=== PATIENT | female | born 1955 | race Caucasian/White ===

== ENCOUNTER 2016-10-22 10:28 | Emergency (ER) | payer BC ==
[2016-10-22 10:40] VITALS: RESP 18; TEMP 97.6; O2SAT 100; BMI 29.9
[2016-10-22] MEDS ORDERED: Sodium Chloride 0.9% 1,000 ML IV ONE (10:50)
[2016-10-22 10:59] LABS: RBC URINE 140 /hpf (0-3); URINE BILIRUBIN NEGATIVE (NEGATIVE); URINE BLOOD 3+ (NEGATIVE); URINE COLOR Yellow (YELLOW); URINE GLUCOSE (UA) NORMAL (Normal); URINE HYALINE CAST 0-2 /lpf (0-2); URINE KETONE NEGATIVE (NEGATIVE); URINE LEUKOCYTE ESTERASE 1+ Leu/uL (Negative); URINE PROTEIN 1+ mg/dL (NEGATIVE); URINE UROBILINOGEN NORMAL mg/dL (0.2-1.0); WBC URINE 3 /hpf (0-5)
[2016-10-22] MEDS ORDERED: Sodium Chloride 0.9% 1,000 ML ONE (11:04)
--- NOTE | 2016-10-22 11:07 | C.PDOC ---
History Of Present Illness Patient is a 60 year old female, with no significant PMHx, presents to ED for evaluation of one day history of left lower abdominal pain, and lower back pain for the last 2-3 days. Denies fever, chills, nausea, vomiting, diarrhea, or urinary symptoms. Time Seen by Provider: 10/22/16 10:35 Chief Complaint (Nursing): Abdominal Pain History Per: Patient History/Exam Limitations: no limitations Onset/Duration Of Symptoms: Days (3) Current Symptoms Are (Timing): Still Present Severity: Mild Location Of Pain/Discomfort: Suprapubic Radiation Of Pain To:: Back Quality Of Discomfort: "Pain" Associated Symptoms: Back Pain. denies: Loss Of Appetite, Chest Pain, Constipation, Urinary Symptoms Exacerbating Factors: None Alleviating Factors: None Recent travel outside of the [place]: No Additional History Per: Patient Abnormal Vaginal Bleeding: No Past Medical History Reviewed: Historical Data, Nursing Documentation, Vital Signs Vital Signs: Last Vital Signs Temp 97.6 F 10/22/16 10:30 Pulse 65 10/22/16 12:18 Resp 18 10/22/16 12:18 BP 148/69 10/22/16 12:18 Pulse Ox 100 10/22/16 14:58 - Medical History PMH: Anxiety, Depression Surgical History: Endoscopy Other Surgeries: Bladder prolapse surgery, hysterectomy Family History: States: Unknown Family Hx - Social History Hx Tobacco Use: No Hx Alcohol Use: No Hx Substance Use: No - Immunization History Hx Tetanus Toxoid Vaccination: No Hx Influenza Vaccination: No Hx Pneumococcal Vaccination: No Review Of Systems Except As Marked, All Systems Reviewed And Found Negative. Constitutional: Negative for: Fever, Chills Cardiovascular: Negative for: Chest Pain, Palpitations Respiratory: Negative for: Shortness of Breath Gastrointestinal: Positive for: Abdominal Pain (lower abdominal pain). Negative for: Nausea, Vomiting, Diarrhea, Constipation Genitourinary: Negative for: Dysuria, Frequency, Hematuria Musculoskeletal: Positive for: Back Pain (lower back pain) Neurological: Negative for: Weakness, Numbness Physical Exam - Physical Exam Appears: Non-toxic, No Acute Distress Skin: Normal Color, Warm, Dry Head: Atraumatic, Normacephalic Oral Mucosa: Moist Neck: Normal ROM, Supple Chest: Symmetrical Cardiovascular: Rhythm Regular, No Murmur Respiratory: Normal Breath Sounds, No Rales, No Rhonchi, No Wheezing Gastrointestinal/Abdominal: Soft, Tenderness (left lower and suprapubic tenderness), No Guarding, No Rebound Back: Normal Inspection, No CVA Tenderness, No Vertebral Tenderness Extremity: Bilateral: Atraumatic, Normal ROM Neurological/Psych: Oriented x3, Normal Speech, Normal Cognition ED Course And Treatment - Laboratory Results Result Diagrams: 10/22/16 10:56 10/22/16 10:56 Lab Interpretation: Normal O2 Sat by Pulse Oximetry: 100 (on RA) Pulse Ox Interpretation: Normal - CT Scan/US No standard instances Other Rad Studies (CT/US): Read By Radiologist, Radiology Report Reviewed CT/US Interpretation: FINDINGS: There is limited evaluation of the solid organs without the administration of IV contrast. LOWER THORAX: No visible consolidation, pleural effusion, or pneumothorax. 3 mm subpleural right lower lobe nodule (series 5, image 16). LIVER: Unremarkable unenhanced appearance. GALLBLADDER AND BILE DUCTS: Unremarkable unenhanced appearance. PANCREAS: Unremarkable unenhanced appearance. SPLEEN: 11 mm probable splenule. Otherwise unremarkable unenhanced appearance. ADRENALS: Unremarkable unenhanced appearance. KIDNEYS AND URETERS: 6 mm distal left ureteral calculus (series 3, image 135) with mild proximal hydroureteronephrosis. No right-sided hydronephrosis or obstructing calculus. 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 BLADDER : The urinary bladder appears unremarkable. REPRODUCTIVE: Uterus is absent, presumably due to hysterectomy. APPENDIX: The appendix appears within normal limits of caliber. No secondary signs of acute appendicitis. BOWEL: The stomach is nondistended. Lack of oral contrast limits evaluation for bowel pathology. The bowel loops appear within normal limits of caliber without evidence of intestinal obstruction. PERITONEUM: No significant free fluid. No definite free air. LYMPH NODES: No bulky lymphadenopathy identified. VASCULATURE: No aortic aneurysm. BONES: Degenerative changes. OTHER FINDINGS : 5 mm fat containing umbilical hernia. IMPRESSION: 3 mm subpleural right lower lobe pulmonary nodule. In the absence of risk factors for lung cancer, no specific imaging follow-up is required. If the patient is a smoker or has other risk factors, follow-up CT at 12 months is recommended to document stability. 6 mm distal left ureteral calculus with mild proximal hydroureteronephrosis. 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 Progress Note: Blood work, UA, Abd & Pelvis CT ordered and reviewed. Pt was given IV fluids, and Toradol. On re-evaluation, patient reports feeling better, with improvement of pain. On re-evaluation abdomen soft non-tender. Patient provided with copy of labs and CT. Patient advised to follow up with PMD for incidental findings Reassessment Condition: Improved Disposition Counseled Patient/Family Regarding: Studies Performed, Diagnosis, Need For Followup, Rx Given - Disposition Referrals: Davi Yoder MD [Staff Provider] - Disposition: HOME/ ROUTINE Disposition Time: 12:15 Condition: IMPROVED Additional Instructions: Follow up with urology for further evaluation Prescriptions: traMADol [Ultram] 50 mg PO TID PRN #12 tab PRN Reason: Pain, Moderate (4-7) Instructions: Renal Colic (ED) Forms: [facility] (Dominican) - POA Present On Arrival: None - Clinical Impression Clinical Impression: Abdominal pain, Renal colic - PA / TANKER DRIVER / Resident Statement MD/DO has reviewed & agrees with the documentation as recorded. - Scribe Statement The provider has reviewed the documentation as recorded by the Jodiibwalter Castellon All medical record entries made by the Sotero were at my direction and personally dictated by me. I have reviewed the chart and agree that the record accurately reflects my personal performance of the history, physical exam, medical decision making, and the department course for this patient. I have also personally directed, reviewed, and agree with the discharge instructions and disposition.
[2016-10-22 11:12] LABS: BASO % 0.3 % (0.0-2.0); EOS % 0.5 % (0.0-4.0); HEMATOCRIT 39.9 % (34.0-47.0); LYMPH # 1.2 K/uL (1.0-4.3); LYMPH % 14.6 % (20.0-40.0); MEAN CELL VOLUME 83.3 fL (81.0-99.0); MEAN CORPUSCULAR HEMOGLOBIN 28.7 pg (27.0-31.0); MEAN CORPUSCULAR HGB CONC 34.4 g/dL (33.0-37.0); MEAN PLATELET VOLUME 8.8 fL (7.2-11.7); MONO # 0.4 K/uL (0.0-0.8); MONO % 4.7 % (0.0-10.0); RED CELL DISTRIBUTION WIDTH 14.2 % (11.5-14.5); WHITE BLOOD COUNT 8.1 K/uL (4.8-10.8)
[2016-10-22 11:24] LABS: ALKALINE PHOSPHATASE 127 U/L (38-126); ALT/SGPT 24 U/L (9-52); AST/SGOT 18 U/L (14-36); BILIRUBIN,TOTAL 0.8 mg/dL (0.2-1.3); BLOOD UREA NITROGEN 15 mg/dL (7-17); CALCIUM 9.3 mg/dl (8.6-10.4); CARBON DIOXIDE 22 mmol/L (22-30); CHLORIDE 102 mmol/L (98-107); GFR AFRICAN-AMERICAN > 60; GLUCOSE,RANDOM 113 mg/dL (65-105); POTASSIUM 3.5 mmol/L (3.6-5.2); SODIUM 139 mmol/L (132-148); TOTAL PROTEIN 7.2 g/dL (6.3-8.3)
--- NOTE | 2016-10-22 11:41 | CT ---
PROCEDURE: CT Abdomen and Pelvis without Oral or IV contrast. HISTORY: Pain COMPARISON: None available. TECHNIQUE: Contiguous axial images of the abdomen and pelvis. No oral or IV contrast administered. Coronal and Sagittal reformats generated. Radiation dose: Total exam DLP = 936.68 mGy-cm. This CT exam was performed using one or more of the following dose reduction techniques: Automated exposure control, adjustment of the mA and/or kV according to patient size, and/or use of iterative reconstruction technique. FINDINGS: There is limited evaluation of the solid organs without the administration of IV contrast. LOWER THORAX: No visible consolidation, pleural effusion, or pneumothorax. 3 mm subpleural right lower lobe nodule (series 5, image 16). LIVER: Unremarkable unenhanced appearance. GALLBLADDER AND BILE DUCTS: Unremarkable unenhanced appearance. PANCREAS: Unremarkable unenhanced appearance. SPLEEN: 11 mm probable splenule. Otherwise unremarkable unenhanced appearance. ADRENALS: Unremarkable unenhanced appearance. KIDNEYS AND URETERS: 6 mm distal left ureteral calculus (series 3, image 135) with mild proximal hydroureteronephrosis. No right-sided hydronephrosis or obstructing calculus. 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 BLADDER: The urinary bladder appears unremarkable. REPRODUCTIVE: Uterus is absent, presumably due to hysterectomy. APPENDIX: The appendix appears within normal limits of caliber. No secondary signs of acute appendicitis. BOWEL: The stomach is nondistended. Lack of oral contrast limits evaluation for bowel pathology. The bowel loops appear within normal limits of caliber without evidence of intestinal obstruction. PERITONEUM: No significant free fluid. No definite free air. LYMPH NODES: No bulky lymphadenopathy identified. VASCULATURE: No aortic aneurysm. BONES: Degenerative changes. OTHER FINDINGS: 5 mm fat containing umbilical hernia. IMPRESSION: 3 mm subpleural right lower lobe pulmonary nodule. In the absence of risk factors for lung cancer, no specific imaging follow-up is required. If the patient is a smoker or has other risk factors, follow-up CT at 12 months is recommended to document stability. 6 mm distal left ureteral calculus with mild proximal hydroureteronephrosis. 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 Additional findings as above.
[2016-10-22 12:20] VITALS: BP 148/69; PULSE 65
== END 2016-10-22 12:22 | disposition home or self-care (01) ==
LOC: C.ER 10:28
DX: R10.32 Left lower quadrant pain (principal); N23 Unspecified renal colic
CPT/HCPCS: 74176; 80053; 81001; 83690; 85025; 87086; 96361; 96374; 99285; J1885; J7040

== ENCOUNTER 2016-10-25 09:21 | Day surgery (SDC) | payer BC ==
[2016-10-25 09:21] VITALS: BMI 31.6
--- NOTE | 2016-10-25 09:34 | C.PDOC ---
History Of Present Illness 60F c/o left flank pain since this am. here w abd pain wed and dx kidney stone. pain worse now, tramadol not working. +nausea. no fever. last po intake cranberry juice 3am. Time Seen by Provider: 10/25/16 09:34 Chief Complaint (Nursing): Back Pain History Per: Patient History/Exam Limitations: no limitations Onset/Duration Of Symptoms: Sudden Onset Past Medical History Reviewed: Historical Data, Nursing Documentation, Vital Signs Vital Signs: Last Vital Signs Temp 97.7 F 10/25/16 09:27 Pulse 65 10/25/16 09:27 Resp 20 10/25/16 09:27 BP 177/81 H 10/25/16 09:27 Pulse Ox 100 10/25/16 09:53 - Medical History PMH: Anxiety, Depression Surgical History: Endoscopy Family History: States: No Known Family Hx Other Family History: nc - Social History Hx Tobacco Use: No Hx Alcohol Use: No Hx Substance Use: No - Immunization History Hx Tetanus Toxoid Vaccination: No Hx Influenza Vaccination: No Hx Pneumococcal Vaccination: No Review Of Systems Except As Marked, All Systems Reviewed And Found Negative. Constitutional: Negative for: Fever, Chills Cardiovascular: Negative for: Chest Pain Respiratory: Negative for: Shortness of Breath Gastrointestinal: Positive for: Nausea, Abdominal Pain. Negative for: Vomiting Genitourinary: Negative for: Dysuria Physical Exam - Physical Exam Appears: Non-toxic Skin: Warm, Dry, No Diaphoretic Head: Atraumatic Nose: No Epistaxis Oral Mucosa: Moist Neck: Normal ROM Cardiovascular: Rhythm Regular Respiratory: No Decreased Breath Sounds, No Accessory Muscle Use Gastrointestinal/Abdominal: Soft, No Tenderness, No Distention, No Guarding, No Rebound Back: CVA Tenderness (left) Extremity: No Swelling Neurological/Psych: Oriented x3 ED Course And Treatment O2 Sat by Pulse Oximetry: 100 (RA) Pulse Ox Interpretation: Normal Medical Decision Making Medical Decision Makin disc w Dr Yoder will take to OR today. Disposition - Disposition Disposition: HOSPITALIZED Disposition Time: 09:50 Condition: STABLE Forms: [employer] ([place]) - Clinical Impression Clinical Impression: Renal colic
[2016-10-25] MEDS ORDERED: Sodium Chloride 0.9% 1,000 ML IV ONE ×2 (09:40→13:00)
[2016-10-25] MEDS ORDERED: Morphine 4 MG/ML VIAL ONE ×2 (09:48→11:15)
[2016-10-25] MEDS ORDERED: Sodium Chloride 0.9% 1,000 ML ONE ×2 (09:48→11:15)
[2016-10-25] MEDS ORDERED: Sodium Chloride 0.9% 1,000 ML IV SCH (10:00)
[2016-10-25 10:40] LABS: BASO % 0.3 % (0.0-2.0); EOS % 0.3 % (0.0-4.0); LYMPH # 0.9 K/uL (1.0-4.3); LYMPH % 10.6 % (20.0-40.0); MEAN CELL VOLUME 83.8 fL (81.0-99.0); MEAN CORPUSCULAR HEMOGLOBIN 28.4 pg (27.0-31.0); MEAN CORPUSCULAR HGB CONC 33.9 g/dL (33.0-37.0); MEAN PLATELET VOLUME 9.4 fL (7.2-11.7); MONO # 0.5 K/uL (0.0-0.8); MONO % 5.8 % (0.0-10.0); RED CELL DISTRIBUTION WIDTH 13.9 % (11.5-14.5); WHITE BLOOD COUNT 8.1 K/uL (4.8-10.8)
[2016-10-25 10:43] LABS: CHLORIDE 100 mmol/L (98-107); POTASSIUM 4.7 mmol/L (3.6-5.2); SODIUM 136 mmol/L (132-148)
[2016-10-25 10:46] LABS: BLOOD UREA NITROGEN 19 mg/dL (7-17); CARBON DIOXIDE 22 mmol/L (22-30); GFR AFRICAN-AMERICAN > 60
[2016-10-25 10:47] LABS: CALCIUM 9.1 mg/dl (8.6-10.4); GLUCOSE,RANDOM 93 mg/dL (65-105)
[2016-10-25 11:12] LABS: URINE BILIRUBIN NEGATIVE (NEGATIVE); URINE BLOOD 2+ (NEGATIVE); URINE COLOR Straw (YELLOW); URINE GLUCOSE (UA) NORMAL (Normal); URINE KETONE NEGATIVE (NEGATIVE); URINE LEUKOCYTE ESTERASE NEG Leu/uL (Negative); URINE PROTEIN NEGATIVE (NEGATIVE); URINE UROBILINOGEN NORMAL mg/dL (0.2-1.0); WBC URINE 2 /hpf (0-5)
[2016-10-25 11:33] LABS: RBC URINE 3 /hpf (0-3)
[2016-10-25] MEDS ORDERED: Propofol 10 mg/ml Inj (20 ML) ONE (12:35)
[2016-10-25] MEDS ORDERED: Midazolam 2 MG/2 ML VIAL ONE (12:35)
[2016-10-25] MEDS ORDERED: Lidocaine Hydrochloride 5 ML INJ ONE (12:38)
[2016-10-25] MEDS ORDERED: Lidocaine 2% Jelly (Uro-Jet) ONE (12:41)
[2016-10-25] MEDS ORDERED: Ciprofloxacin 400mg/200ml D5W 400 MG/200 ML BAG IVPB ONE (12:41)
[2016-10-25] MEDS ORDERED: Phenylephrine 10 mg/ml Inj ONE (12:43)
[2016-10-25] MEDS ORDERED: Iohexol 240 (50 ml) ONE (13:13)
[2016-10-25] MEDS ORDERED: ePHEDrine 50 mg/ml Inj ONE (13:19)
[2016-10-25] MEDS ORDERED: HYDROmorphone 0.5 mg/0.5 ml ISec IVP PRN (13:44)
[2016-10-25 14:26] VITALS: TEMP 97
[2016-10-25 14:50] VITALS: BP 133/68; PULSE 77; RESP 13; O2SAT 7
--- NOTE | 2016-10-25 16:54 | RAD ---
PROCEDURE: Intraoperative fluoroscopy HISTORY: LT. DISTAL URETER CALCULI COMPARISON: Not available TECHNIQUE: Intraoperative fluoroscopy was provided for left ureteral stent placement. Total time of fluoroscopy is 14.4 seconds. FINDINGS: Five fluoroscopic spot films are submitted. These films are on file for review. IMPRESSION: Fluoroscopy provided.
--- NOTE | 2016-10-28 13:53 | OP ---
PROCEDURE DATE: SURGEON: Davi Yoder MD TYPE OF ANESTHESIA: General. DESCRIPTION OF PROCEDURE: This is a 60-year-old female admitted with left renal colic. The patient's CAT scan revealed a 6 mm calculus in the left distal ureter. The patient was brought to the OR, prepped and draped in the usual manner. After general anesthesia was given, #21 cystourethroscope was inserted into the bladder, 0.35 wire was passed through the orifice beyond the calculus into the kidney. A double-J stent was then left over the wire and the wire was removed. There was good placement of the stent. Calculus could be easily identified adjacent to the stent. The patient tolerated the procedure and left the OR in good condition. Davi Yoder MD
--- NOTE | 2016-10-28 17:30 | CARD ---
APPROVED REPORT EKG Measurement Heart [id number] CT [id number] <Conclusion> Sinus bradycardia Poor R wave progression. It may be positional. Abnormal ECG
== END 2016-10-25 15:05 | disposition home or self-care (01) ==
LOC: C.ER 09:21 → C.SDS 09:21
PROVIDERS: ATTEND Urology
DX: N20.1 Calculus of ureter (principal)
CPT/HCPCS: 36415; 52332; 76000; 80048; 81001; 85025; 85610; 85730; 93005; 96361; 96374; 96376; 99285; C1769; C2617; J0744; J2270; J7040

== ENCOUNTER 2016-11-07 08:43 | Day surgery (SDC) | payer BC ==
[2016-11-07] MEDS ORDERED: Lactated Ringer's 1,000 ML IV ONE ×2 (09:02)
[2016-11-07] MEDS ORDERED: Midazolam 2 MG/2 ML VIAL ONE (09:49)
[2016-11-07] MEDS ORDERED: Propofol 10 mg/ml Inj (20 ML) ONE (09:49)
[2016-11-07] MEDS ORDERED: Ciprofloxacin 400mg/200ml D5W 400 MG/200 ML BAG IVPB ONE (09:52)
[2016-11-07] MEDS ORDERED: Iohexol 240 (50 ml) ONE (09:52)
[2016-11-07] MEDS ORDERED: Lidocaine 2% Jelly (Uro-Jet) ONE (09:52)
[2016-11-07] MEDS ORDERED: HYDROmorphone 0.5 mg/0.5 ml ISec IVP PRN (10:41)
[2016-11-07 12:20] VITALS: RESP 16
[2016-11-07 13:03] VITALS: BP 134/70; PULSE 68; TEMP 97.2; O2SAT 100
--- NOTE | 2016-11-07 14:45 | RAD ---
HISTORY: LEFT URITERAL STONE COMPARISON: Abdomen Pelvis CT without contrast 10/22/2016. FINDINGS: BOWEL: Normal. No obstruction. No free air. Moderate retained fecal material is identified at the ascending through transverse and hepatic flexure colon segments. BONES: Normal. OTHER FINDINGS: Status post left double-J ureteral stent is identified in position with a 4 5 mm calculus seen adjacent to the distal portion of the stent apparently reflecting further migration of the prior distal left ureteral calculus seen in the mid pelvis in prior CT 10/22/2016. Other calcifications in the pelvis represent phleboliths. IMPRESSION: 4-5 mm calculus abuts the distal segment of the left ureteral stent having migrated more distally in the left ureter as compared prior CT abdomen pelvis 10/22/2016.
--- NOTE | 2016-11-10 08:29 | PROCN ---
DATE: 11/07/16 INDICATIONS: This is a 60-year-old female who has a stent inserted for an obstructing left distal ureteral calculus. The patient rode go back to the OR for cystoscopy, uteroscopy, and laser lithotripsy. DESCRIPTION OF PROCEDURE: The patient was prepped and draped. She has a general anesthesia given. Using # 21 cystourethroscope into the bladder stent that was inserted into the left ureter, which goes through the urethra. wire was then inserted through the stent and the stent removed. Using a rigid short ureteroscope, the scope was inserted into the left orifice, calculus was noted and broken up into multiple pieces. Using a nitinol basket, the stone fragments were removed in its entirety, some left in the bladder and some removed. The bladder was then emptied. The patient tolerated the procedure well and left the OR in good condition. Davi Yoder MD
== END 2016-11-07 12:55 | disposition home or self-care (01) ==
LOC: C.SDS 08:43
PROVIDERS: ATTEND Urology
DX: N20.1 Calculus of ureter (principal)
CPT/HCPCS: 50953; 50961; 74000; 82365; 88300; J0744; J7120